=== PATIENT | female | born 1940 | race American Indian/Alaskan Native ===

== ENCOUNTER 2022-05-08 12:51 | Outpatient (CLI) | payer MEDICARE, SELFPAY ==
[2022-05-08 16:50] LABS: Albumin* 4.3 g/dL (3.3-5.0); Chloride* 101 mmol/L (96-114)
[2022-05-08 16:51] LABS: Potassium* 3.8 mmol/L (3.6-5.1); Sodium* 138 mmol/L (135-149)
[2022-05-08 16:53] LABS: Bilirubin Total* 0.5 mg/dL (0.1-1.5); Carbon Dioxide* 26 mmol/L (20-32); Cholesterol* 174 mg/dL (90-199); Creatinine* 0.9 mg/dL (0.5-1.5); Estimated Glomerular Filt Rate 65 ml/min; Total Protein* 7.5 g/dL (6.0-8.3)
[2022-05-08 16:54] LABS: Alanine Aminotransferase* 12 U/L (4-35); Alkaline Phosphatase* 135 U/L (40-150); Aspartate Amino Transferase* 21 U/L (12-35); Blood Urea Nitrogen* 21 mg/dL (7-30); Calcium* 9.7 mg/dL (8.4-10.6); Glucose* 131 mg/dL (60-115); HDL Cholesterol* 51 mg/dL (>=50); LDL Cholesterol Calculated 102 mg/dL (<100); Triglycerides* 107 mg/dL (40-149)
== END 2022-05-08 12:52 | disposition home or self-care (01) ==
PROVIDERS: PCP Physician Assistant Medical; Visit Provider Physician Assistant Medical
DX: E11.9 Type 2 diabetes mellitus without complications (principal); E78.5 Hyperlipidemia, unspecified; I10 Essential (primary) hypertension; Z79.4 Long term (current) use of insulin
CPT/HCPCS: 80053; 80061

== ENCOUNTER 2022-11-21 13:04 | Outpatient (CLI) | payer MEDICARE, SELFPAY | END 2022-11-21 13:05 | disposition home or self-care (01) | PROVIDERS: PCP Physician Assistant Medical; Visit Provider Physician Assistant Medical | DX: E78.5 Hyperlipidemia, unspecified (principal); I10 Essential (primary) hypertension; E11.9 Type 2 diabetes mellitus without complications; E53.8 Deficiency of other specified B group vitamins; Z79.4 Long term (current) use of insulin; R53.83 Other fatigue | CPT/HCPCS: 82607; 84443 ==

== ENCOUNTER 2023-05-14 14:12 | Outpatient (CLI) | payer MEDICARE, SELFPAY | END 2023-05-14 14:13 | disposition home or self-care (01) | LOC: FRMREF 14:12 | PROVIDERS: PCP Physician Assistant Medical; Visit Provider Physician Assistant Medical | DX: E11.9 Type 2 diabetes mellitus without complications (principal); E78.5 Hyperlipidemia, unspecified; E53.8 Deficiency of other specified B group vitamins; I10 Essential (primary) hypertension | CPT/HCPCS: 80053; 80061; 82043; 82570; 82607 ==

== ENCOUNTER 2023-05-28 14:30 | Outpatient (RCR) | payer MEDICARE, SELFPAY ==
--- NOTE | 2023-05-24 15:45 | PT.OPE ---
PT [facility] Eval Start: 05/21/23 13:38 Freq: Status: Active Protocol: Document 05/24/23 08:40 ENM (Rec: 05/24/23 15:19 ENM [id number]) E-signed By Liliya Grimes, DPT Physical Therapy Outpatient Evaluation Insurance Information Recert Due Date 08/16/23 Insurance Name Medicare B Medical Diagnosis sciatica, right side Treating Diagnosis right glute/leg pain, impaired standing tolerance, impaired gait, deconditioning Referring MD Friedman Subjective Subjective Patient presents to PT for complaint of right glute and leg pains that started a month ago. The pains are limiting her ability to stand and cook. The pain is always present and gradually gets worse the longer she stands. She has a dog that she needs to walk 3x a day which she can do but it is very painful. Sometimes laying down can be painful but moving around seems to help some. She was given a medrol dose pack which provided great relief but once it was over the pains came back. Tylenol gives her enough pain relief to sleep at night. She also feels like the prednisone caused her to feel very tired. She was supposed to get B12 injections today as her levels have also been low. Patient states that she did not bring her portable oxygen tank or her 4WW. At rest she typically uses 1 LPM, walking in the apartment 2 LPM and 3 LPM when outside of the home. She has baseline numbness/tingling from her diabetes but does not have new numbness from the leg pains. PMHx: COPD, hx of lung cancer Pain Comments at its best: I know its there at its worse: -02/09 easing: steroid, tylenol aggravating: standing, walking her dog, Current Work Status Retired Objective Other/Pertinent Objective Resting vitals spo2 93% HR 73 BPM ROM: FF repeated x4 with overpressure no pain EXT repeated x4 + for right glute pain ROT + pain with R rotation no pain with L rotation hip ROM flexion, IR, ER WNL (pain noted on L side with all ROM) strength: 5x STS 14.99s without use of arms 30s STS 9 reps without use of arms, limited by breathing and knee pain. Spo2 85% after performing requiring 45s to increase to >90% hip flexors L4-/5 R 4-/5 knee extensors L 4-/5 R 4/5 palpation/joint mobility: unable to palpate right glute or trial lumbar spine opening technique due to limitations in prone or L sidelying positioning gait/balance: Patient ambulating without AD in clinic although she uses a 4WW at baseline. Wide DIOGO, slow pace, flexed posture limited by breathing and knee pains. Walks ~40' within clinic before needing to sit due to her breathing special tests: SLR - on L , + on R for pains running from glute down the leg Functional Test Performed & Score YANDY: 15/50 30% moderate disability Assessment Assessment/Impression Patient is an 82 year old female presenting with 1 month history of right glute/leg pains. Their primary complaint is of increasing pain with standing in her kitchen and with walking her dog. They had relief of symptoms with a medrol dose pack but pains came back when course was over. She uses a 4WW and portable oxygen at baseline due to COPD and hx of lung cancer. Upon assessment patients concordant pains brought on with lumbar extension, right lumbar rotation and SLR on right side. Patient displays decreased LE strength L>R with MMT and 5x STS. As well as decreased functional endurance seen with ambulation and 30s STS (9 reps). Spo2 at baseline 93% which decreased to 85% with testing requiring ~40s to increase >90% again. Rachel would greatly benefit from skilled PT to address impairments stated above in order to perform all functional mobility and household duties without significant discomfort or difficulty. Primary Functional Limitations standing at her kitchen, walking her dog Plan of Care Rehabilitation Potential Fair Physical Therapy Goals In 7-9 visits: 1. Patient will be IND with HEP and self management of symptoms 2. Patient will be able to stand at her kitchen with 2/10 or less right leg pains for improved ability to perform household duties 3. Patient will improve 30s STS from 9 reps to 11 reps demonstrating improvements in LE functional strength and endurance 4. Patient will be able to walk >5 mins without leg pain with AD in order to walk their dog 5. Patient will improve YANDY from 30% to 20% (MDC 10% ) to demonstrate improvements in QOL Coordination/Communication With Referral Source Treatment Plan/Direct Interventions Gait Training,Heat,Ice/Cold/ Vasopneumatic,Joint Mobilization,Manual Therapy, Neuromuscular Re-ed,Self-Care/ Home Management,Therapeutic Activities,Therapeutic Exercises Frequency/Duration 1x a week for 7-9 visits Patient Will Be Discharged From Therapy Completion of LTG(s), Independent w/HEP Evaluation Billing Untimed Code Treatment Minutes 32 Complexity Moderate Certification Information Initial Certification Date 05/24/23 Ending Certification Date 08/16/23 Provider Signature Shows Agreement With POC & Medical Necessity Physician Signature & Date Requested Please Sign/Date Here Physician Comment/Change : Physician NPI Number #
== END 2023-07-26 14:36 | disposition home or self-care (01) ==
PROVIDERS: PCP Physician Assistant Medical; Visit Provider Physician Assistant Medical
DX: M54.31 Sciatica, right side (principal); Z51.89 Encounter for other specified aftercare
CPT/HCPCS: 97110; 97140; 97162

== ENCOUNTER 2024-06-29 08:23 | Outpatient (CLI) | payer MEDICARE, SELFPAY | END 2024-06-29 08:24 | disposition home or self-care (01) | LOC: NFLDREF 06-30 15:51 | PROVIDERS: PCP Physician Assistant Medical; Referring Provider Physician Assistant Medical; Visit Provider Physician Assistant Medical | DX: E11.9 Type 2 diabetes mellitus without complications (principal); E78.2 Mixed hyperlipidemia; I10 Essential (primary) hypertension; E53.8 Deficiency of other specified B group vitamins; Z79.4 Long term (current) use of insulin | CPT/HCPCS: 80053; 80061; 82043; 82570; 82607; 84443 ==

== ENCOUNTER 2024-11-19 15:13 | Outpatient (CLI) | payer MEDICARE, SELFPAY | END 2024-11-19 15:14 | disposition home or self-care (01) | LOC: NFLDREF 11-21 23:20 | PROVIDERS: PCP Physician Assistant Medical; Referring Provider Physician Assistant Medical; Visit Provider Physician Assistant Medical | DX: R53.83 Other fatigue (principal); E11.9 Type 2 diabetes mellitus without complications; E53.8 Deficiency of other specified B group vitamins; M85.80 Other specified disorders of bone density and structure, unspecified site; R79.89 Other specified abnormal findings of blood chemistry; R79.0 Abnormal level of blood mineral; Z79.4 Long term (current) use of insulin | CPT/HCPCS: 82306; 82607; 82728; 84443 ==

== ENCOUNTER 2025-06-09 14:31 | Outpatient (CLI) | payer MEDICARE, SELFPAY | END 2025-06-09 14:32 | disposition home or self-care (01) | LOC: NFLDREF 06-14 08:03 | PROVIDERS: PCP Physician Assistant Medical; Referring Provider Physician Assistant Medical; Visit Provider Physician Assistant Medical | DX: E53.8 Deficiency of other specified B group vitamins (principal); E78.2 Mixed hyperlipidemia; I10 Essential (primary) hypertension; I25.10 Atherosclerotic heart disease of native coronary artery without angina pectoris; E11.9 Type 2 diabetes mellitus without complications; Z79.4 Long term (current) use of insulin; K21.9 Gastro-esophageal reflux disease without esophagitis | CPT/HCPCS: 80053; 80061; 82043; 82570; 84443 ==